=== PATIENT | female | born 1990 | race Two or more races ===

== ENCOUNTER 2024-03-29 18:20 | Inpatient (IN) | payer MEDICAID, SELFPAY ==
[2024-03-29 19:03] VITALS: BMI 28.3
[2024-03-29 19:24] VITALS: BP 129/87; PULSE 100; RESP 15; TEMP 37.4
[2024-03-29 19:36] LABS: Basophils % (Auto) 1 % (0-2.5); Eosinophils # (Auto) 0.1 Thou/mm3 (0.0-0.5); Eosinophils % (Auto) 2 % (0-10); Hematocrit 37.7 % (36.0-46.0); Hemoglobin 12.9 g/dL (12.0-16.0); Immature Granulocytes % (Auto) 1 % (0-0); Immature Granulocytes Auto 0.04 Thou/mm3 (0.00-0.00); Lymphocytes # (Auto) 1.6 Thou/mm3 (1.0-4.8); Lymphocytes % (Auto) 23 % (10-50); Mean Corpuscular HGB Conc 34.2 g/dl (31.0-37.0); Mean Corpuscular Hemoglobin 29.9 pg (25.0-35.0); Mean Corpuscular Volume 88 fL (80-100); Monocytes # (Auto) 0.6 Thou/mm3 (0.0-0.8); Monocytes % (Auto) 9 % (0-12); Neutrophils # (Auto) 4.4 Thou/mm3 (1.8-7.7); Neutrophils % (Auto) 65 % (37-80); Nucleated Red Blood Cell % 0 /100 WBC (0); Platelet Count 307 Thou/mm3 (140-440); RDW Standard Deviation 42.5 fL (36.4-46.3); Red Blood Count 4.31 Miln/mm3 (4.00-5.20); White Blood Count 6.8 Thou/mm3 (3.6-11.0)
--- NOTE | 2024-03-29 20:38 | XR_ITS ---
Examination: age Limited Technique: Sonographic transabdominal images of the pelvis Exam date and time: March 29, [id number] hrs. Indications: Clinical diagnosis demise Findings: No heart tones Anterior placenta Intrauterine gestation estimated weight 96 g Impression: Intrauterine gestation 14 week 3 day gestational age, no heart tones, demise
--- NOTE | 2024-03-29 20:48 | PD.LDHP ---
Documentation for date of: 03/29/24 OB Labor/Induct. HPI History of Present Illness Chief complaint: Patient presents for scheduled induction of labor for a known demise : 7 Para: 5 Term pregnancies: 5 pregnancies: 1 Living children: 5 History of Abortions: Spontaneous and Elective: 1 History of Vaginal deliveries: 6 History of sections: No History of : No GILES: 08/22/24 Gestational Age (weeks): 19 Gestational Age (days): 1 Indication for induction: other (Known demise) History of present illness: Patient is a 33-year-old -1-0-5 history of term vaginal delivery x 4 followed by 20-week demise with induction of labor followed by another normal term vaginal delivery one year ago who presents for scheduled induction of labor secondary to another demise. Patient should be 19 weeks by notes from the office at [facility] she is measuring about 14 to 15 weeks. History of Present Dating criteria: LMP confirmed by 1st trimester US Adequate Care: Yes Medical complications: other (There is some question in her history whether patient has antiphospholipid antibody syndrome or not. She has not been on it this .) Labs Maternal Blood Type: O Pos Review of Systems Review of Systems Systems Reviewed: All systems reviewed, normal except as documented Constitutional Constitutional: Reports system reviewed and no additional complaints, except as documented Comments: Patient denies any fevers chills any vaginal bleeding she denies any recent illnesses or travel she denies being on Lovenox this . She denies any rashes. No sick contacts. Past Medical History Past Medical History HEMATOLOGIC: Positive Clotting Problems (Patient had antiphospholipid antibodies drawn in the past. ) Surgical History SURGICAL: Negative Section Meds Home Medications and Allergies Home Medications ?Medication ?Instructions ?Recorded ?Confirmed ?Type aspirin 81 mg chewable tablet 1 tab PO QDAY 11/11/22 03/29/24 History vit no.95-ferrous 1 tab PO QDAY 11/11/22 03/29/24 History fumarate 28 mg-folic acid 800 mcg tablet () Allergies Allergy/AdvReac Type Severity Reaction Status Date / Time No Known Allergies Allergy Verified 03/29/24 19:32 OB Exam Physical Exam Vital signs: Pulse BP 100 129/87 H 03/29/24 19:24 03/29/24 19:24 Constitutional Constitutional: no acute distress Routine Neck Exam Neck: Present supple and trachea midline Routine Respiratory Exam Respiratory: Present CTA bilaterally Routine Cardiovascular Exam Cardiovascular: Present RRR Routine Abdominal Exam Abdominal: Present soft Detailed Labor and Delivery Exam Dilation (cm): cl Effacement (%): 0 Cervix position: posterior station: -4 Consistency: firm Membranes: intact Routine Extremities Exam Extremities: Present full ROM Routine Skin Exam Skin: Present intact, dry and warm Routine Psychiatric Exam Psychiatric: Present normal affect and normal thought process OB Results Labs 03/29/24 19:10 Labs: Short CBC 03/29/24 Range/Units 19:10 WBC 6.8 (3.6-11.0) Thou/mm3 Hgb 12.9 (12.0-16.0) g/dL Hct 37.7 (36.0-46.0) % Plt Count 307 (140-440) Thou/mm3 OB Assessment & Plan Assessment and Plan (1) Advanced maternal age (AMA) in : Status: Acute (2) demise before 20 weeks with retention of fetus: Status: Acute (3) Grand multiparity in labor and delivery: Status: Acute Additional Plan Induction method: other (PO cytotec 600 q 6 hrs) Plan: induction and anticipate NVD Additional Plan Comment: Ok for epidural. Pt aware she may need a D and C for removal of placenta.
[2024-03-29 20:56] LABS: Syphilis Nonreactive (Nonreactive)
[2024-03-29] MEDS: MISOPROSTOL 200 mCg TABLET 600 MCG PO (22:01)
[2024-03-30] VITALS (19 sets, daily range): BP systolic 107–120; BP diastolic 55–84; PULSE 80–97; RESP 14–18; TEMP 36.8–37.2; O2SAT 99
[2024-03-30] MEDS: MISOPROSTOL 200 mCg TABLET 600 MCG PO (04:00)
[2024-03-30 04:05] LABS: Amphetamine/Metham Scrn,Ur OB Negative (Negative); Benzoylecgonine Screen, Ur OB Negative (Negative); Opiate Screen,Urine OB Negative (Negative); THC Screen,Urine OB Negative (Negative)
--- NOTE | 2024-03-30 06:47 | OBDSUM_ITS ---
Data ([place]) Data Hx Section: No Maternal Blood Type: O Pos Rubella Titre: Positive RPR: Non-reactive Labs: Negative: RPR, Hepatitis B, HIV, Chlamydia and Gonorrhea and Unknown: Group Beta Strep : 7 Term: 5 : 0 Livin : 1 Delivery Data ([place]) Labor Data Stimulated/Augmented: Yes Induction: Yes Method: Cytotec Rupture Type: SROM Amniotic Fluid: Clear Delivery Data EDC: 08/22/24 EDC calculated by:: LMP/early US confirmation Delivery Date: 03/30/24 Delivery Time: 05:57 Placenta Delivery Date: 03/30/24 Placenta Delivery Time: 06:50 Length stage 2 (minutes): 2 Length stage 3 (minutes): 50 Delivered by: Tomasa Cabrera [employer] Consultant at delivery: No Support person(s) at delivery: none Delivery Method Delivery: Vaginal Presentation: Vertex Position: OA Anesthesia Type Primary Anesthesia: None Secondary Anesthesia: None Delivery Room Medications Post Delivery Medications: Tocolytics (pitocin) Placenta Placenta Delivery: Spontaneous Placenta Cultures Obtained: No Placenta Sent for Examination: Yes Episiotomy Episiotomy: None EBL Estimated blood loss (ml): 50 Umbilical Cord Umbilical Vessels: Not Applicable Nuchal Cord: None Body Cord: None Additional Procedures The Patient is a 33-year-old -0-1-5 admitted to 03/29/24 for an induction of labor secondary to a known demise. The Patient was suuposed to be 19 weeks but measuring only 14-1/2 weeks . A bedside ultrasound confirmed no cardiac activity and an intrauterine measuring 14 to 15 weeks. The patient was given oral Cytotec 600 mcg on admission and had a second dose placed overnight. I was called to bedside around 5:45 AM as the patient was feeling pressure and there were parts in the vagina. I arrived at bedside and the patient pushed once delivering a nonviable approximately 14 to 15-week fetus. The Cord was clamped and cut and the fetus was handed to the mother in a blanket to hold. The placenta was still in place. After trying to push a few times the placenta did not dislodge. As patient was not bleeding heavily, she was given IV Pitocin and the plan was to wait for up to 2 hours for the placenta to deliver. About an hour after delivery I was called to the bedside and patient again felt pressure and pushed out a complete placenta. This was examined carefully and found to be complete. Patient delivered without pain medication and over an intact perineum complications were none condition the mother was in stable condition in the delivery room plan was to send down the placenta to pathology. Complications Complications: none Data ([place]) [place] Data Gender: Ambiguous weight (oz.): 35 g
--- NOTE | 2024-03-30 12:01 | PC.CC ---
Rug Inspector, Adrianna informed that patient suffered a demise at 14-weeks of . CC introduced self, role and reason for visit. Patient appeared alert and oriented to self, place and situation. Patient was pleasant, her mood and behavior were ordinary. CC provided emotional support. Patient reported that her partner, Vincent will be staying with her at home. CC provided communtiy resources for [facility] [place], [facility] and [facility].
[2024-03-30 14:20] LABS: Basophils % (Auto) 0 % (0-2.5); Eosinophils # (Auto) 0.1 Thou/mm3 (0.0-0.5); Eosinophils % (Auto) 2 % (0-10); Hematocrit 33.2 % (36.0-46.0); Hemoglobin 11.3 g/dL (12.0-16.0); Immature Granulocytes % (Auto) 0 % (0-0); Immature Granulocytes Auto 0.02 Thou/mm3 (0.00-0.00); Lymphocytes # (Auto) 2.2 Thou/mm3 (1.0-4.8); Lymphocytes % (Auto) 34 % (10-50); Mean Corpuscular Hemoglobin 29.9 pg (25.0-35.0); Mean Corpuscular Volume 88 fL (80-100); Monocytes # (Auto) 0.5 Thou/mm3 (0.0-0.8); Monocytes % (Auto) 8 % (0-12); Neutrophils # (Auto) 3.5 Thou/mm3 (1.8-7.7); Neutrophils % (Auto) 55 % (37-80); Nucleated Red Blood Cell % 0 /100 WBC (0); Platelet Count 258 Thou/mm3 (140-440); RDW Standard Deviation 42.3 fL (36.4-46.3); Red Blood Count 3.78 Miln/mm3 (4.00-5.20); White Blood Count 6.3 Thou/mm3 (3.6-11.0)
== END 2024-03-30 15:10 | disposition home or self-care (01) | DRG 564 ==
PROVIDERS: Admitting Provider Obstetrics & Gynecology; Visit Provider Obstetrics & Gynecology
DX: O02.1 Missed abortion (principal); Z3A.14 14 weeks gestation of pregnancy; Z79.82 Long term (current) use of aspirin
CPT/HCPCS: 36415; 76815; 80307; 85025; 86780; 86850; 86900; 86901; S0191; A9270

== ENCOUNTER 2024-12-27 14:10 | Outpatient (AMB) | payer MEDICAID, SELFPAY ==
[2024-12-27 14:34] VITALS: BP 119/79; PULSE 82; RESP 16; TEMP 36.4; O2SAT 98; BMI 30.4
--- NOTE | 2024-12-27 14:34 | OBCLNT_ITS ---
Vital Signs 12/27/24 14:34 Height 1.57 m Height Method Stated Weight 75.353 kg Weight Measurement Method Standing Scale BMI 30.4 BP 119/79 Blood Pressure Source Automatic Cuff Blood Pressure Location Left Upper Arm Position Sitting Respiration 16 Pulse 82 Pulse Source Monitor Temp 97.6 F Temp Source Oral Pulse Oximetry (%) 98 Oxygen Delivery Method Room Air Allergies/Home Meds Allergies & Medications Allergies No Known Allergies Allergy (Verified 12/27/24 14:35) Medication Reconciliation vit no.95-ferrous fumarate 28 mg-folic acid 800 mcg tablet () 1 tab PO QDAY 11/11/22 [History Confirmed 12/27/24] Intake Visit Data Collection New Patient or Established: Established Patient (seen at [facility] within 3 years) Reason for Visit:: INITIAL CARE Seen by Clinical Staff ONLY (RN/MA): No Filing Clerk Required: No Do You Feel Safe at Home: Yes Authorities Contacted: N/A PCP or OBGYN visit in last 3 months: Yes Hx Now: Yes Are you currently on any form of Control: No Last menstrual period: 05/28/24 Pain Present Currently: No Pain Scale Used: Vera-Pretty/Numerical Pain scale:: 0 Smoking Status Smoking Status: Never smoker Immunizations Flu Vaccine in the Last 12 Months: Yes Date of most recent flu vaccination: 12/27/24 Flu Vaccine Exclusion Criteria: Already Received Questionnaires Covid-19 Vaccine Questionnaire Has patient been vacinated for Covid-19 Have you been vacinated for Covid-19: Yes PHQ-9 PHQ-2 Over the last 2 weeks, how often have you been bothered by any of the following problems? 1. Little interest or pleasure in doing things: not at all 2. Feeling down, depressed, or hopeless: not at all Total score: 0 PHQ-9 3. Trouble falling or staying asleep, or sleeping too much: Not at all 4. Feeling tired or having little energy: Not at all 5. Poor appetite or overeating: Not at all 6. Feeling bad about yourself - or that you are a failure or have let yourself or your family down: Not at all 7. Trouble concentrating on things, such as reading the newspaper or watching television: Not at all 8. Moving or speaking so slowly that other people could have noticed? - Or the opposite - being so fidgety or restless that you have been moving around a lot more than usual: not at all 9. Thoughts that you would be better off or of hurting yourself in some way: Not at all Total score: 0 Source: Developed by Drs. Mauricio Santacruz, Katerin Hudson, Thomas Cabrera and colleagues, with an educational cleopatra from [employer]. Depression screen completed yes Social History Living Situation History Marital Status: Lives With: Family Housing: House Tobacco History Smoking Status: Never smoker Second Hand Smoke Exposure: No Alcohol History Alcohol Intake: Never Domestic Abuse History Do You Feel Safe at Home: Yes OB Ultrasound Indication Indication: 34-year-old 8 para 5 for OBI. Patient was seen for the first few visits at [facility] and then went lost to care. LMP is May 28, 2024. This gave due date March 04, 2025. Patient's first ultrasound was on November 26. She was measuring 26 weeks at that time and that confirmed due date. And put the baby at the 17th percentile. She has a history of DVTs. And she has been taking Lovenox she thinks about 12 mEq twice a day. She also is grand multiparity. And AMA. She denies any surgeries. Denies social habits. She denies hypertension no history of diabetes. The only lab that was drawn was her NIPT and that was negative and showed it was a boy. Reports movement. Denies any, bleeding, cramps STAFF CONSULTANT: Past Medical History Past Medical History: No Hx Neurological Disorders, No Hx Cardiac Disorders, No Hx Cancer, No Hx Blood Disorders, No Hx Anemia, No Hx Gastrointestinal Disorders, No Hx Renal Disease, No Hx Diabetes Mellitus Type 1 and No Hx Diabetes Mellitus Type 2 OB Initial Visit OB Flowsheet OB Flowsheet Initial Weight: Not Recorded Date -?-?-?-?-?-?-?-?-?-?-?-?- EGA Weight BP Alb Glu CTX Pres Fundal ht FHR Mov Dilation Station Ef facement Hx Notes Visit Note 12/27/24 -?-?-?-?-?-?-?-?-?-?-?-?- 30w 3d 75.353 kg 119/79 absent unknown 28 145 active 34-year-old 8 para 5 for OBI. Patient was seen at [facility] for several visits and then lost care. Patient has a history of taking Lovenox she thinks is 12 units 4 weeks twice daily. She reports good movement. Denies leaking or bleeding. I Continue Lovenox for now. Discussed labor precautions and kick count. She has a follow-up MFM appointment January 08. Discussed kick count twice a day. We did OB panel today and I did clotting labs, hemoglobin A1c. And a 1 hour GTT. Continue prenatals. And return in 2 w eeks OB check Menstrual History Menstrual reliability: definite Flow: normal Menstrual regularity: regular Monthly: Yes Age at menarche: 8 On control pills at conception: No Associated symptoms (LMP): Denies amenorrhea, nausea, vomiting, fatigue, breast tenderness, urinary frequency, irritability, bloating or other OB History : 8 Para: 5 Hx Total # of Abortions (Spontaneous & Elective): 2 # of Living Children: 5 Delivery History 1st : Child's name: SUSAN date: 11/21/07 sex: male Gestational age at delivery (weeks): 37 Delivery type: vaginal Delivery complications: NONE History of depression before or after : No 2nd : Child's name: SALAS date: 04/11/13 sex: male Gestational age at delivery (weeks): 38 Delivery type: vaginal Delivery complications: NONE History of depression before or after : No 3rd : Child's name: MIR date: 01/08/18 sex: female Gestational age at delivery (weeks): 38 Delivery type: vaginal Delivery complications: NONE History of depression before or after : No 4th : Child's name: MARY date: 12/09/19 sex: female Gestational age at delivery (weeks): 38 Delivery type: vaginal Delivery complications: NONE History of depression before or after : No 5th : Child's name: NICOLE date: 11/11/22 sex: female Gestational age at delivery (weeks): 37 Delivery type: vaginal Delivery complications: NONE History of depression before or after : No Infection History & Risk Evaluation History of STDs: none Genetic Screening & History Genetic Screening/Teratology Counseling - Includes patient, baby's father, or anyone in either family with: 1. Patient's age 35 years or older as of estimated date of delivery: Yes 2. Thalassemia (Arabic, Arabic, Mediterranean, or Background); MCV less than 80: No 3. Neural Tube Defect (Meningomyelocele, Spina Bifida, or Anencephaly): No 4. Congenital Heart Defect: No 5. Down Syndrome: No 6. Vlad-Sachs (Ashkenazi Oriental Orthodox, Cajun, Tristanian [place]): No 7. Мария Disease (Ashkenazi Oriental Orthodox): No 8. Familial Dysautonomia (Ashkenazi Oriental Orthodox): No 9. Sickle Cell Disease or Trait (): No 10. Hemophilia or other blood disorders: No 11. Muscular Dystrophy: No 12. Cystic Fibrosis: No 13. Bere's Chorea: No 14. Mental Retardation/Autism: No 15. Other inherited genetic or chromosomal disorder: No 16. Maternal Metabolic Disorder (EG,TYPE 1 Diabetes, PKU): No 17. Patient or baby's father had a child with defects not listed above: No 18. Recurrent loss or a stillbirth: No 19. Medications (including supplements, vitamins, herbs or otc drugs)/illicit/recreational drugs/alcohol since last menstrual period: No 20. Any other: No Infection History 1. Live with someone with TB or exposed to TB: No 2. Rash or viral illness since last menstrual period: No 3. Hepatitis B,C: No Other (see comments) Source: [employer] Review of Systems Review of Systems Systems Reviewed: All systems reviewed, normal except as documented Constitutional Constitutional: Denies fatigue Gastrointestinal Gastrointestinal: Denies bloating, Denies nausea and Denies vomiting Genitourinary Genitourinary: Denies amenorrhea and Denies urinary frequency Psychiatric Psychiatric: Denies irritability Endocrine Endocrine: Denies fatigue Exam General Limitations: no limitations General Appearance: alert, in no apparent distress, comfortable, cooperative, healthy appearing, well developed and well groomed Head Head exam: atraumatic, normocephalic and normal inspection ENT ENT exam: Present normal exam, normal oropharynx and mucous membranes moist Neck Neck exam: Present normal inspection, full ROM and trachea midline Chest Chest inspection: Present normal inspection and symmetric chest wall rise Resp Respiratory exam: Present normal lung sounds bilaterally Card Cardiovascular exam: Present regular rate, normal rhythm and normal heart sounds Abdominal Abdominal exam: Present soft and normal bowel sounds Psych Psychiatric exam: Present normal affect and normal mood Office Procedures OBC Clinic LOC & Office Proc's Nursing/Assessment Patient Status: Established Patient OB Clinic Nursing Assessment: Medication Reconciliation, Update PMH in EMR and Vital Signs OB Clinic Coordination of Care: AMA, Complex Care and Chronic Disease 1-5, Consent,records obtained, informed consent, Education Simp Pt/Fam, 1 Ins A uthorization, Lab and Imaging orders, Results/Orders obtained and Staff clarify orders Special Needs: Heart tones Established Patient Charge Established Patient Point Assignment: 170 Established Patient Point Charge: EP Level 5 (160-above) Injection/Vaccine Admin SQ Im Injection: Yes Immunizations flu vac ts (6mos up)-PF 45 mcg(15mcg x3)/0.5 mL IM syringe Performing Provider: Aline Dhillon CNM Performing Location: [facility] Administered by: Carrie Lopez MA on 12/27/24 16:08 Dose Route Admin Location Dispensed Lot Number Expiration Date Pack age [facility] [employer] Compounder 0.5 mL IM Right Deltoid 0.5 mL [id number] 08/05/25 04168-130-43 [id number] VIS Given Date VIS Provided VIS Publication Date 12/27/24 Single Vaccine 24 Eligibility Eligibility Date Funding Source Public [facility] Assessment & Plan Diagnosis / Problem List (1) Encounter for supervision of high risk in third trimester, antepartum: Status: Acute (2) DVT (deep vein thrombosis) in : Status: Acute (3) Antiphospholipid syndrome complicating , antepartum: Status: Acute (4) Advanced maternal age (AMA) in : Status: Acute Plan OB panel scheduled with 1 hour GTT. Did a CMP, TSH, PT PTT.'s SMA and cystic fibrosis were also ordered. She will continue with her Lovenox. She has a follow-up [facility] January 08. Discussed labor precautions. And patient will be scheduled with OB in 2 weeks Additional Plan Follow Up: 2 Weeks (obc)
== END 2024-12-27 15:29 | disposition home or self-care (01) ==
LOC: HODSOBC 14:10
PROVIDERS: Supervising Provider Advanced Practice Midwife; Visit Provider Advanced Practice Midwife
DX: O09.893 Supervision of other high risk pregnancies, third trimester (principal); O99.113 Other diseases of the blood and blood-forming organs and certain disorders involving the immune mechanism complicating pregnancy, third trimester; D68.61 Antiphospholipid syndrome; Z3A.30 30 weeks gestation of pregnancy; Z23 Encounter for immunization
CPT/HCPCS: 90471; 90686; 96372; 99215; G0463; J9060

== ENCOUNTER 2025-01-07 13:05 | Outpatient (AMB) | payer MEDICAID, SELFPAY ==
--- NOTE | 2025-01-07 13:29 | OBCLNT_ITS ---
Vital Signs 01/07/25 13:31 Height 1.57 m Height Method Stated Weight 74.446 kg Weight Measurement Method Standing Scale BMI 30.2 BP 123/76 Blood Pressure Source Automatic Cuff Blood Pressure Location Left Upper Arm Position Sitting Respiration 18 Pulse 90 Pulse Source Monitor Temp 97.8 F Temp Source Oral Pulse Oximetry (%) 98 Oxygen Delivery Method Room Air Allergies/Home Meds Allergies & Medications Allergies No Known Allergies Allergy (Verified 01/07/25 13:32) Medication Reconciliation vit no.95-ferrous fumarate 28 mg-folic acid 800 mcg tablet () 1 tab PO QDAY 11/11/22 [History Confirmed 01/07/25] Immunizations Immunizations Flu Vaccine in the Last 12 Months: Yes Flu Vaccine Exclusion Criteria: Already Received Care OB Visit Log OB Flowsheet Initial Weight: Not Recorded Date -?-?-?-?-?-?-?-?-?-?-?-?- EGA Weight BP Alb Glu CTX Pres Fundal ht FHR Mov Dilation Station Effacement Hx Notes Visit Note 12/27/24 -?-?-?-?-?-?-?-?-?-?-?-?- 30w 3d 75.353 kg 119/79 absent unknown 28 145 active 34-year-old 8 para 5 for OBI. Patient was seen at [facility] for several visits and then lost care. Patient has a history of taking Lovenox she thinks is 12 units 4 weeks twice daily. She reports good movement. Denies leaking or bleeding. I Continue Lovenox for now. Discussed labor precautions and kick count. She has a follow-up MFM appointment January 08. Discussed kick count twice a day. We did OB panel today and I did clotting labs, hemoglobin A1c. And a 1 hour GTT. Continue prenatals. And return in 2 weeks OB check 01/07/25 -?-?-?-?-?-?-?-?-?-?-?-?- 32w 0d 74.446 kg 123/76 absent cephalic 32 152 active GILES Calculator Estimated Delivery Date Method Current WG Current Estimate 03/04/25 LMP (Certain) 32w 0d Other Estimates 03/04/25 Ultrasound #1 32w 0d 03/04/25 Manual 32w 0d final GILES: EFW: 17% Notes Visit Date: 01/07/25 Last Updated by: Latricia Villarreal MD 34 yo Grand multip, IUP 32 weeks , EFW 17%, HX ov DVT and antiphospholipd syndrome, on lovenox, wants refills on Lovenox injections 40 q day and also omeprazole MFM appointment tomorrow / o positive / HIV/RPR/Heb are negative /Rubella immune 1 hour GTT is normal / follow up in 2 weeks /NIPT done at [facility] / received Flu Vaccine / will take T dap later / refuses BTL / will refill meds NIPT- Visit Date: 12/27/24 Last Updated by: Aline Dhillon CNM 34 yo Grand multip, IUP 30w3, EFW17%, HX ov DVT and antiphospholipd syndrome, on lovenox, unsure of dose, NIPT- Office Procedures OBC Clinic LOC & Office Proc's Nursing/Assessment Patient Status: Established Patient OB Clinic Nursing Assessment: Medication Reconciliation, Update PMH in EMR and Vital Signs OB Clinic Coordination of Care: Consent,records obtained, informed consent, Education Simp Pt/Fam, Lab and Imaging orders and Staff clarify orders Special Needs: Heart tones Established Patient Charge Established Patient Point Assignment: 105 Established Patient Point Charge: EP Level 3 (80-115) Assessment & Plan Diagnosis / Problem List (1) Antiphospholipid syndrome complicating , antepartum: Status: Acute (2) Grand multiparity in labor and delivery: Status: Acute (3) Advanced maternal age (AMA) in : Status: Acute
[2025-01-07 13:31] VITALS: BP 123/76; PULSE 90; RESP 18; TEMP 36.6; O2SAT 98; BMI 30.2
== END 2025-01-07 14:17 | disposition home or self-care (01) ==
LOC: HODSOBC 13:05
PROVIDERS: Supervising Provider Obstetrics & Gynecology; Visit Provider Obstetrics & Gynecology
DX: O09.523 Supervision of elderly multigravida, third trimester (principal); O09.43 Supervision of pregnancy with grand multiparity, third trimester; O09.893 Supervision of other high risk pregnancies, third trimester; O99.113 Other diseases of the blood and blood-forming organs and certain disorders involving the immune mechanism complicating pregnancy, third trimester; D68.61 Antiphospholipid syndrome; Z3A.32 32 weeks gestation of pregnancy; Z86.718 Personal history of other venous thrombosis and embolism; Z79.01 Long term (current) use of anticoagulants
CPT/HCPCS: 99213; G0463

== ENCOUNTER 2025-01-23 08:59 | Outpatient (AMB) | payer MEDICAID, SELFPAY ==
[2025-01-23 09:24] VITALS: BP 127/87; PULSE 77; RESP 18; TEMP 36.8; O2SAT 99; BMI 30.4
--- NOTE | 2025-01-23 09:24 | OBCLNT_ITS ---
Vital Signs 01/23/25 09:24 Height 1.57 m Height Method Stated Weight 75.07 kg Weight Measurement Method Standing Scale BMI 30.4 BP 127/87 H Blood Pressure Source Automatic Cuff Blood Pressure Location Left Upper Arm Position Sitting Respiration 18 Pulse 77 Pulse Source Monitor Temp 98.2 F Temp Source Oral Pulse Oximetry (%) 99 Oxygen Delivery Method Room Air Allergies/Home Meds Allergies & Medications Allergies No Known Allergies Allergy (Verified 01/23/25 09:25) Medication Reconciliation vit no.95-ferrous fumarate 28 mg-folic acid 800 mcg tablet () 1 tab PO QDAY 11/11/22 [History Confirmed 01/23/25] enoxaparin 40 mg/0.4 mL subcutaneous syringe (Lovenox) 40 mg (0.4 mL) subcut Q24H #12 mL 01/07/25 [Rx Confirmed 01/23/25] omeprazole 20 mg capsule,delayed release 20 mg PO QDAY 12 weeks #84 caps 01/07/25 [Rx Confirmed 01/23/25] Immunizations Immunizations Flu Vaccine in the Last 12 Months: Yes Flu Vaccine Exclusion Criteria: Already Received Care OB Visit Log OB Flowsheet Initial Weight: Not Recorded Date -?-?-?-?-?-?-?-?-?-?-?-?- EGA Weight BP Alb Glu CTX Pres Fundal ht FHR Mov Dilation Station Effacement Hx Notes Visit Note 12/27/24 -?-?-?-?-?-?-?-?-?-?-?-?- 30w 3d 75.353 kg 119/79 absent unknown 28 145 active 34-year-old 8 para 5 for OBI. Patient was seen at [facility] for several visits and then lost care. Patient has a history of taking Lovenox she thinks is 12 units 4 weeks twice daily. She reports good movement. Denies leaking or bleeding. I Continue Lovenox for now. Discussed labor precautions and kick count. She has a follow-up MFM appointment January 08. Discussed kick count twice a day. We did OB panel today and I did clotting labs, hemoglobin A1c. And a 1 hour GTT. Continue prenatals. And return in 2 weeks OB check 01/07/25 -?-?-?-?-?-?-?-?-?-?-?-?- 32w 0d 74.446 kg 123/76 absent cephalic 32 152 active 01/23/25 -?-?-?-?-?-?-?-?-?-?-?-?- 34w 2d 75.07 kg 127/87 absent cephalic 34 144 active GILES Calculator Estimated Delivery Date Method Current WG Current Estimate 03/04/25 LMP (Certain) 34w 2d Other Estimates 03/04/25 Ultrasound #1 34w 2d 03/04/25 Manual 34w 2d final GILES: EFW: 17% Notes Visit Date: 01/23/25 Last Updated by: Latricia Villarreal MD 34 yo Grand multip, IUP 34.2 weeks , EFW 17%, HX ov DVT and antiphospholipd syndrome, on lovenox, / repeat BP is 114/76/ labor precautions and kick count emphasized MFM appointment got cancelled and does not have another date / o positive / HIV/RPR/Heb are negative /Rubella immune 1 hour GTT is normal / follow up in 2 weeks /NIPT done at [facility] / received Flu Vaccine / will take T dap later / refuses BTL / has lovenox NIPT- Visit Date: 12/27/24 Last Updated by: Aline Dhillon CNM 34 yo Grand multip, IUP 30w3, EFW17%, HX ov DVT and antiphospholipd syndrome, on lovenox, unsure of dose, Visit Date: 01/07/25 Last Updated by: Latricia Villarreal MD 34 yo Grand multip, IUP 32 weeks , EFW 17%, HX ov DVT and antiphospholipd syndrome, on lovenox, wants refills on Lovenox injections 40 q day and also omeprazole MFM appointment tomorrow / o positive / HIV/RPR/Heb are negative /Rubella immune 1 hour GTT is normal / follow up in 2 weeks /NIPT done at [facility] / received Flu Vaccine / will take T dap later / refuses BTL / will refill meds NIPT- Visit Date: 12/27/24 Last Updated by: Aline Dhillon CNM 34 yo Grand multip, IUP 30w3, EFW17%, HX ov DVT and antiphospholipd syndrome, on lovenox, unsure of dose, NIPT- Office Procedures [facility] LOC & Office Proc's Nursing/Assessment Patient Status: Established Patient OB Clinic Nursing Assessment: Medication Reconciliation, Update PMH in EMR and Vital Signs OB Clinic Coordination of Care: Complex Care and Chronic Disease 1-5, Consent,records obtained, informed consent, Education Simp Pt/Fam, Lab and Imaging orders, Results/Orders obtained and Staff clarify orders Special Needs: Heart tones Established Patient Charge Established Patient Point Assignment: 135 Established Patient Point Charge: EP Level 4 (120-155) Assessment & Plan Diagnosis / Problem List (1) DVT (deep vein thrombosis) in : Status: Acute (2) Encounter for supervision of high risk in third trimester, antepartum: Status: Acute (3) Antiphospholipid syndrome complicating , antepartum: Status: Acute (4) Grand multiparity in labor and delivery: Status: Acute (5) Advanced maternal age (AMA) in : Status: Acute Additional Assessment 34 yo Grand multip, IUP 34.2 weeks , EFW 17%, HX ov DVT and antiphospholipd syndrome, on lovenox, / repeat BP is 114/76/ labor precautions and kick count emphasized M appointment got cancelled and does not have another date / o positive / HIV/RPR/Heb are negative /Rubella immune 1 hour GTT is normal / follow up in 2 weeks /NIPT done at [facility] / received Flu Vaccine / will take T dap later / refuses BTL / has lovenox NIPT- Visit Date: 12/27/24 Last Updated by: Aline Dhillon CNM 34 yo Grand multip, IUP 30w3, EFW17%, HX ov DVT and antiphospholipd syndrome, on lovenox, Additional Plan Transition to heparin 10,000 units BID next visit Stop Lovenox 12 hours prior to delivery/IOL/ restart Lovenox 12 hours or as appropriate for 6 weeks Follow Up: 2 Weeks
== END 2025-01-23 09:54 | disposition home or self-care (01) ==
PROVIDERS: Supervising Provider Obstetrics & Gynecology; Visit Provider Obstetrics & Gynecology
DX: O09.893 Supervision of other high risk pregnancies, third trimester (principal); O99.113 Other diseases of the blood and blood-forming organs and certain disorders involving the immune mechanism complicating pregnancy, third trimester; D68.61 Antiphospholipid syndrome; O09.523 Supervision of elderly multigravida, third trimester; O09.43 Supervision of pregnancy with grand multiparity, third trimester; Z3A.34 34 weeks gestation of pregnancy; Z86.718 Personal history of other venous thrombosis and embolism; Z79.01 Long term (current) use of anticoagulants
CPT/HCPCS: 99214; G0463